=== PATIENT | male | born 1980 | race Caucasian/White ===

== ENCOUNTER 2022-06-04 10:08 | Outpatient (CLI) | payer OTHER, SELFPAY | END 2022-06-04 10:09 | disposition home or self-care (01) | PROVIDERS: PCP Family Medicine; Visit Provider Family Medicine | DX: R21 Rash and other nonspecific skin eruption (principal) | CPT/HCPCS: 86618 ==

== ENCOUNTER 2022-06-10 14:30 | Outpatient (CLI) | payer OTHER, SELFPAY | END 2022-06-10 14:31 | disposition home or self-care (01) | PROVIDERS: PCP Family Medicine; Visit Provider Internal Medicine | DX: K59.00 Constipation, unspecified (principal) | CPT/HCPCS: 80053; 84443 ==

== ENCOUNTER 2022-06-11 07:31 | Outpatient (CLI) | payer OTHER, SELFPAY ==
--- NOTE | 2022-06-11 08:00 | CRLHL7_ITS ---
For Patients: As a result of the Century Cures Act, medical imaging exams and procedure reports are released immediately into your electronic medical record. You may view this report before your referring provider. If you have questions, please contact your health care provider. Indication: Abdominal pain Technique: Postcontrast CT abdomen and pelvis. Oral water. 76 cc Isovue 370 intravenous contrast. Please note that all CT scans at this facility use dose modulation, iterative reconstruction, and/or weight-based dosing when appropriate to reduce radiation dose to as low as reasonably achievable. Comparison: Abdominal x-ray 06/07/2022 Findings: Lung bases are clear. Normal liver, spleen, gallbladder and pancreas. Incidental splenule noted. Adrenal glands, kidneys and ureters are normal. No abdominal or pelvic adenopathy. No hiatal hernia. Stomach and small bowel appear normal. Normal prostate and plantar. Appendix normal. No bowel obstruction, free air, free fluid or abscess. Incidental unilateral pars defect on the left at L5 without spondylolisthesis. Impression: No evidence of colitis or enteritis. 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 Incidental chronic hypertrophic changes involving the L5 posterior elements. Please note that all CT scans at this facility use dose modulation, iterative reconstruction, and/or weight-based dosing when appropriate to reduce radiation dose to as low as reasonably achievable. Dictated by Toribio Hair MD @ 06/11/2022 3:36:08 PM (Electronically Signed)
== END 2022-06-11 07:32 | disposition home or self-care (01) ==
PROVIDERS: PCP Family Medicine; Visit Provider Internal Medicine
DX: R10.9 Unspecified abdominal pain (principal); M43.16 Spondylolisthesis, lumbar region
CPT/HCPCS: 74177; Q9967

== ENCOUNTER 2022-06-12 14:13 | Emergency (ER) | payer OTHER, SELFPAY ==
[2022-06-12 14:20] VITALS: BP 133/93; PULSE 85; RESP 16; TEMP 36.3; O2SAT 100; BMI 22.9
--- NOTE | 2022-06-12 15:16 | ED.GENADULT ---
HPI - General Adult General Time Seen by Provider: 15:16 Date Seen: 06/12/22 Chief complaint: Constipation Stated complaint: 9 days constipated Time Seen by Provider: 06/12/22 14:33 Source: patient Mode of arrival: ambulatory Limitations: no limitations History of Present Illness HPI narrative: Patient is a 38-year-old male who works in [employer] visiting at [place]. He reports that he has had 9 days of lack of bowel movement, he has passed some brownish tinged watery stool. He had a flat and upright film that showed a couple air-fluid levels but nothing dramatic and no stool cannulation about a week ago, had a CT scan of the abdomen yesterday was unremarkable. He has done some MiraLax and enemas without success. He discussed some findings with Dr. Right abraham this morning was advised to use mineral oil and MiraLax and felt that was not helping after few hours and came to the ER. He is not having any pain or discomfort no dysuria, no other specific complaints. No fevers, no weight loss, no vomiting, he really is does not have any abdominal pain or distension. He has noticed no blood in his stool. Related Data Home Medications Medication Instructions Recorded Confirmed hydrocortisone 2.5 % topical cream 1 applic topical QDAY PRN 05/22/22 06/10/22 Previous Rx's Medication Instructions Recorded sildenafil 50 mg tablet 25 - 100 mg PO QDAY PRN sexual 02/21/22 activity #15 tabs Allergies Allergy/AdvReac Type Severity Reaction Status Date / Time No Known Drug Allergies Allergy Verified 06/10/22 14:14 Review of Systems Status of ROS: Reports: 6 or more systems reviewed and unremarkable except as noted in History and below [facility] Medical History Abdominal pain Constipation Surgical History H/O shoulder surgery Social History Smoking Status: Current some day smoker What tobacco products do you use: cigarettes Do you use any of these nicotine containing products: None Second hand tobacco smoke exposure: No How often do you have a drink containing alcohol: 2-3 times a week How many standard drinks containing alcohol do you have on a typical day: 1 or 2 How often do you have six or more drinks on one occasion: Never AUDIT-C Alcohol total score: 3 Non-prescribed substance use: marijuana (any form) Non-prescribed substance use details: occasional cannabis Little interest or pleasure in doing things: not at all Feeling down, depressed, or hopeless: not at all service: No Exam Narrative: Exam Narrative: Objective: Patient is alert or x3 in no distress flat scaphoid abdomen Vital signs unremarkable Abdomen is soft benign bowel sounds normoactive no masses palpable Good peripheral perfusion noted Const: Vital Signs, click to edit/add: Vital Signs - 24 hr 06/12/22 14:20 Temperature 97.3 F L Pulse Rate [Pulse Oximeter] 85 Respiratory Rate 16 Blood Pressure [Le ft Upper Arm] 133/93 H Pulse Oximetry 100 Oxygen Delivery Me thod Room Air Course Vital Signs Vital signs: Initial Vital Signs Temperature 97.3 F L 06/12/22 14:20 Temperature Source Temporal Artery Scan 06/12/22 14:20 Pulse Rate 85 06/12/22 14:20 Pulse Rhythm 06/12/22 14:20 Pulse Strength 3+ Normal 06/12/22 14:20 Respiratory Rate 16 06/12/22 14:20 Blood Pressure 133/93 H 06/12/22 14:20 Blood Pressure Mean 106 06/12/22 14:20 Blood Pressure Position Sitting 06/12/22 14:20 Pulse Oximetry 100 06/12/22 14:20 Oxygen Delivery Method 06/12/22 14:20 Vital Signs Temperature 97.3 F L 06/12/22 14:20 Pulse Rate 85 06/12/22 14:20 Respiratory Rate 16 06/12/22 14:20 Blood Pressure 133/93 H 06/12/22 14:20 Pulse Oximetry 100 06/12/22 14:20 Oxygen Delivery Method 06/12/22 14:20 Temperature 97.3 F L 06/12/22 14:20 Pulse Rate 85 06/12/22 14:20 Respiratory Rate 16 06/12/22 14:20 Blood Pressure 133/93 H 06/12/22 14:20 Pulse Oximetry 100 06/12/22 14:20 Oxygen Delivery Method 06/12/22 14:20 Medical Decision Making MDM Narrative Medical decision making narrative: Patient is a 41-year-old male with lack of bowel movement for the last week or so, he has had some liquidy type fluid pass. He was seen in the clinic over the week he had a CT scan was negative yesterday of his abdomen, and unremarkable past are unremarkable flat and upright abdominal x-ray. He had blood work to look reassuring. He does have a seizure disorder is not on any medications for that. At this point I think given his sudden change in bowel habits with a normal CT, normal laboratory studies it would be reasonable to schedule him for a colonoscopy. We can try an Enemeez enema today and see if that gives him any results. But at this point he is not really having pain or discomfort. I think a colonoscopy with the appropriate course of action. And we will try and set this up DONN. Addendum: The patient had no response to the Enemeez enema, which is not surprising given that it appeared he had much stool on his CT scan yesterday. Would recommend colonoscopy this will be set up as an outpatient he was in agreement to proceed with that. Discharge Plan Discharge Clinical Impression: Constipation Patient Disposition: Home, Self-Care Condition: Stable Additional Instructions: Scan will be scheduled for colonoscopy, instructions per the recommendation. Expect a call from the [facility] to schedule your conoloscopy. If you have any questions, please call [phone]. Activity Level: Light activity Discharge Diet: Regular Prescriptions: No Action sildenafil 50 mg tablet 25 - 100 mg PO QDAY PRN (Reason: sexual activity) Qty: 15 11RF Rx Instructions: administer 30 minutes to 4 hours before activity hydrocortisone 2.5 % cream 1 applic topical QDAY PRN Label Comments: APPLY 2 TIMES DAILY TO AFFECTED AREAS FOR UP TO 2 WEEKS Follow Up/Referrals: Juan José Urena MD [Primary Care Provider] - Stand Alone Forms: [employer] Info Instructions
[2022-06-12] MEDS: DOCUSATE SODIUM/BENZOCAINE 5 ML ENEMA PR (15:19)
== END 2022-06-12 16:05 | disposition home or self-care (01) ==
PROVIDERS: Emergency Provider Family Medicine; PCP Family Medicine
DX: K59.00 Constipation, unspecified (principal)
CPT/HCPCS: 99282; 99283; A9270

== ENCOUNTER 2022-06-14 08:31 | Outpatient (CLI) | payer OTHER, SELFPAY | END 2022-06-14 08:32 | disposition home or self-care (01) | PROVIDERS: PCP Family Medicine; Visit Provider Internal Medicine | DX: R10.84 Generalized abdominal pain (principal) | CPT/HCPCS: 45380; 88305; J2250; J3010 ==